=== PATIENT | male | born 1985 | race Caucasian/White ===

== ENCOUNTER 2018-01-25 12:56 | Emergency (ER) | payer SELFPAY ==
[2018-01-25] MEDS ORDERED: FENTANYL CITRATE INJ/PF 100 MCG/2 ML AMPUL ONE ×3 (13:19→15:05)
[2018-01-25] MEDS ORDERED: MIDAZOLAM 2 MG/2 ML INJ ONE ×2 (13:35→13:36)
[2018-01-25] MEDS ORDERED: HYDROCORTISONE SOD SUCCINATE INJ/PF 100 MG/2 ML SDV ONE (13:45)
--- NOTE | 2018-01-25 13:58 | RADIOLOGY REPORT (SQ) ---
EXAM DESCRIPTION: CHEST SINGLE VIEW COMPLETED DATE/TIME: 01/25/2018 1:47 pm REASON FOR STUDY: ETT PLACEMENT, NG TUBE PLACEMENT COMPARISON: None. EXAM PARAMETERS: NUMBER OF VIEWS: One view TECHNIQUE: Single frontal radiograph of the chest. RADIATION DOSE: N/A LIMITATIONS: None. FINDINGS: TEMPORARY SUPPORT DEVICES:ETT is in the right mainstem bronchus and should be pulled back 2 to 3 cm. NG appears to be in the stomach. LUNGS AND PLEURA: Left basilar opacities. No effusions. No masses. No pneumothorax. MEDIASTINUM AND HILAR STRUCTURES: No masses. Contour normal. HEART AND VASCULAR STRUCTURES: Heart enlarged. Vascular congestion. Aorta normal for age. BONES: No acute findings. OTHER: No other significant finding. IMPRESSION: Vascular congestion. Left basilar opacities. ET tube is low and should be pulled back 2 to 3 cm. TECHNICAL DOCUMENTATION: JOB ID: [id number] [employer]- All Rights Reserved Reading location - IP/workstation name: [email or web address]
[2018-01-25] MEDS ORDERED: PROPOFOL 100 ML IV ONE (14:11)
[2018-01-25] MEDS ORDERED: MIDAZOLAM HCL 50 MG/100 ML RTUINJ IV ONE (14:50)
[2018-01-25] MEDS ORDERED: NOREPINEPHRINE BITARTRATE INJ/PF 4 MG/4 ML SDV IV ONE (14:50)
[2018-01-25] MEDS ORDERED: EPINEPHRINE INJ 1 MG/10 ML DISP.SYRIN ONE ×2 (15:21→16:50)
[2018-01-25] MEDS ORDERED: SODIUM BICARBONATE 8.4% INJ 50 MEQ/50 ML DISP.SYRIN ONE ×3 (15:21→16:47)
[2018-01-25] MEDS ORDERED: ATROPINE SULFATE INJ 1 MG/10 ML DISP.SYRIN IV ONE (15:21)
[2018-01-25] MEDS ORDERED: AMIODARONE HCL INJ 150 MG/3 ML VIAL IV ONE (15:21)
[2018-01-25] MEDS ORDERED: TENECTEPLASE INJ 50 MG KIT IV ONE (15:23)
--- NOTE | 2018-01-25 16:10 | ER Document Report ---
ED Resuscitation - General Chief Complaint: Cardiac Arrest Stated Complaint: CARDIAC ARREST Mode of Arrival: Medic Information source: Parent, Emergency Med Personnel Cannot obtain history due to: Intubated Notes: 32-year-old male with a history of adrenal hypoplasia presents via EMS in cardiac arrest. Per EMS upon their arrival patient was talking, alert and awake when he suddenly became cyanotic and collapse. Patient was found in a wide complex tachycardia and received 2 shocks and 3 rounds of epi prior to arrival. Per the family patient has been complaining of gas and indigestion over the last few days and has been more fatigued. Parents believe that patient has been compliant with his steroid medication. They report no other significant past medical history. Family history is significant for a possible clotting disorder of the father for which she was told it could be genetic but they do not know what the name is at this time. Father is currently on Xarelto. - HPI Witnessed arrest: Yes Bystander CPR?: Yes Onset: Just prior to arrival Symptoms prior to event: Defibrillator fired - EMS states patient was initially alert and talking when he suddenly became cyanotic from the neck up and collapsed. Upon rhythm assessment a saw a wide complex tachycardia for which they administered 2 shocks. Patient received epinephrine prior to arrival. EMS did achieve Ross but then lost it just prior to getting to the emergency department., Diaphoretic, Other - cyanotic. negative: Chest pain, Leg swelling Associated Symptoms: Other - Burping, burning chest pain. No: Fever/Chills - Paramedics initial findings Unresponsive: Partially Rhythm: Ventricular fibrillation - Ventricular tachycardia Glucose (Mg/dl): 150 Pulse: None - Pre-hospital treatment Treatment: Intubated Epinephrine Dose (mg): 5 Atropine Dose (mg): 1 Sodium Bicarb dose (amp): 2 Amiodarone dose (mg): 300 Past Medical History - General Information source: Parent - Social History Smoking Status: Never Smoker Frequency of alcohol use: None Drug Abuse: None Lives with: Family Family History: Other - clotting disorder - Past Medical History Cardiac Medical History: Reports: Other - adrenal hypoplasia Pulmonary Medical History: Reports: None EENT Medical History: Reports: None Review of Systems - Review of Systems -: Yes ROS unobtainable due to patient's medical condition - Family reports a few days of patient complaining of burning in his chest. Physical Exam - Vital signs Vitals: Pulse Ox 100 01/25/18 13:00 Interpretation: Normal, Hypotensive - General General appearance: Unresponsive - HEENT Head: Normocephalic, Atraumatic Eyes: Normal Pupils: PERRL Nasal: Normal Mouth/Lips: Normal Mucous membranes: Dry Pharynx: Normal - Respiratory Respiratory status: Other - Patient arrived with Christian airway. Decreased breath sounds of the left lung. Chest status: Nontender Breath sounds: Normal Chest palpation: Normal - Cardiovascular Heart sounds: Normal auscultation Murmur: No Pulses: Absent: Brachial, Radial, Carotid, Femoral Normal capillary refill: No - Abdominal Inspection: Normal Distension: Distended Bowel sounds: Normal Tenderness: Nontender Organomegaly: No organomegaly - Extremities General upper extremity: Normal inspection, Nontender, Normal color, Normal ROM , Normal temperature. No: Edema General lower extremity: Normal inspection, Nontender, Normal color, Normal ROM , Normal temperature, Normal weight bearing. No: Edema, Abdoulaye's sign Course - Re-evaluation Re-evalutation: Laboratory 01/25/18 01/25/18 01/25/18 13:02 14:07 15:52 WBC 26.3 H RBC 4.53 Hgb 13.2 L Hct 39.6 MCV 87 MCH 29.1 MCHC 33.3 RDW 14.2 H Plt Count 292 Total Counted 100 Seg Neutrophils % Not Reportable Seg Neuts % (Manual) 53 Band Neutrophils % 19 H Lymphocytes % Not Reportable Lymphocytes % (Manual) 18 Atypical Lymphs % 1 Monocytes % Not Reportable Monocytes % (Manual) 3 Eosinophils % Not Reportable Eosinophils % (Manual) 0 Basophils % Not Reportable Basophils % (Manual) 0 Metamyelocytes % 4 H Myelocytes % 2 H Absolute Neutrophils Not Reportable Abs Neuts (Manual) 20.5 H Absolute Lymphocytes Not Reportable Abs Lymphs (Manual) 5.0 H Absolute Monocytes Not Reportable Abs Monocytes (Manual) 0.8 Absolute Eosinophils Not Reportable Absolute Eos (Manual) 0.0 Absolute Basophils Not Reportable Abs Basophils (Manual) 0.0 Smudge Cells PRESENT Toxic Vacuolation PRESENT Clumped Platelets PRESENT Platelet Comment ADEQUATE Polychromasia SLIGHT Anisocytosis SLIGHT Pappenheimer Bodies PRESENT PT INR VBG pH VBG pCO2 VBG HCO3 VBG Base Excess Sodium Potassium Chloride Carbon Dioxide Anion Gap BUN Creatinine Est GFR ( Amer) Est GFR (Non-Af Amer) Glucose POC Glucose 150 H Lactic Acid Calcium Total Bilirubin Direct Bilirubin Neonat Total Bilirubin Neonat Direct Bilirubin Neonat Indirect Bili AST ALT Alkaline Phosphatase Total Protein Albumin Urine Color COLORLESS Urine Appearance CLEAR Urine pH 7.0 Ur Specific [place] 1.014 Urine Protein 100 H Urine Glucose (UA) 1000 H Urine Ketones NEGATIVE Urine Blood MODERATE H Urine Nitrite NEGATIVE Urine Bilirubin NEGATIVE Urine Urobilinogen NEGATIVE Ur Leukocyte Esterase NEGATIVE Urine WBC (Auto) 8 Urine RBC (Auto) 8 Squamous Epi Cells Auto 1 Urine Mucus (Auto) OCC Urine Ascorbic Acid NEGATIVE 01/25/18 01/25/18 01/25/18 15:52 15:52 15:52 WBC RBC Hgb Hct MCV MCH MCHC RDW Plt Count Total Counted Seg Neutrophils % Seg Neuts % (Manual) Band Neutrophils % Lymphocytes % Lymphocytes % (Manual) Atypical Lymphs % Monocytes % Monocytes % (Manual) Eosinophils % Eosinophils % (Manual) Basophils % Basophils % (Manual) Metamyelocytes % Myelocytes % Absolute Neutrophils Abs Neuts (Manual) Absolute Lymphocytes Abs Lymphs (Manual) Absolute Monocytes Abs Monocytes (Manual) Absolute Eosinophils Absolute Eos (Manual) Absolute Basophils Abs Basophils (Manual) Smudge Cells Toxic Vacuolation Clumped Platelets Platelet Comment Polychromasia Anisocytosis Pappenheimer Bodies PT 23.3 H INR 1.95 VBG pH VBG pCO2 VBG HCO3 VBG Base Excess Sodium Cancelled Potassium Cancelled Chloride Cancelled Carbon Dioxide Cancelled Anion Gap Cancelled BUN Cancelled Creatinine Cancelled Est GFR ( Amer) Cancelled Est GFR (Non-Af Amer) Cancelled Glucose Cancelled POC Glucose Lactic Acid 5.8 H Calcium Cancelled Total Bilirubin Cancelled Direct Bilirubin Cancelled Neonat Total Bilirubin Cancelled Neonat Direct Bilirubin Cancelled Neonat Indirect Bili Cancelled AST Cancelled ALT Cancelled Alkaline Phosphatase Cancelled Total Protein Cancelled Albumin Cancelled Urine Color Urine Appearance Urine pH Ur Specific [place] Urine Protein Urine Glucose (UA) Urine Ketones Urine Blood Urine Nitrite Urine Bilirubin Urine Urobilinogen Ur Leukocyte Esterase Urine WBC (Auto) Urine RBC (Auto) Squamous Epi Cells Auto Urine Mucus (Auto) Urine Ascorbic Acid 01/25/18 01/25/18 16:00 16:39 WBC RBC Hgb Hct MCV MCH MCHC RDW Plt Count Total Counted Seg Neutrophils % Seg Neuts % (Manual) Band Neutrophils % Lymphocytes % Lymphocytes % (Manual) Atypical Lymphs % Monocytes % Monocytes % (Manual) Eosinophils % Eosinophils % (Manual) Basophils % Basophils % (Manual) Metamyelocytes % Myelocytes % Absolute Neutrophils Abs Neuts (Manual) Absolute Lymphocytes Abs Lymphs (Manual) Absolute Monocytes Abs Monocytes (Manual) Absolute Eosinophils Absolute Eos (Manual) Absolute Basophils Abs Basophils (Manual) Smudge Cells Toxic Vacuolation Clumped Platelets Platelet Comment Polychromasia Anisocytosis Pappenheimer Bodies PT INR VBG pH 6.90 L* VBG pCO2 60.4 VBG HCO3 11.6 L VBG Base Excess -21.6 Sodium 114.6 L* Potassium 6.0 H* Chloride 94 L Carbon Dioxide 12 L Anion Gap 9 BUN 40 H Creatinine 0.93 Est GFR ( Amer) > 60 Est GFR (Non-Af Amer) > 60 Glucose 366 H POC Glucose Lactic Acid Calcium 5.8 L* Total Bilirubin 0.4 Direct Bilirubin 0.3 Neonat Total Bilirubin Not Reportable Neonat Direct Bilirubin Not Reportable Neonat Indirect Bili Not Reportable AST 181 H ALT 143 H Alkaline Phosphatase 35 L Total Protein 3.8 L Albumin 2.2 L Urine Color Urine Appearance Urine pH Ur Specific [place] Urine Protein Urine Glucose (UA) Urine Ketones Urine Blood Urine Nitrite Urine Bilirubin Urine Urobilinogen Ur Leukocyte Esterase Urine WBC (Auto) Urine RBC (Auto) Squamous Epi Cells Auto Urine Mucus (Auto) Urine Ascorbic Acid 01/25/18 16:39 32-year-old male with a history of adrenal hypoplasia presents in cardiac arrest from home. Per EMS upon their arrival patient was alert awake and talking when he suddenly became cyanotic, collapsed and was found to be in a wide complex tachycardia. Patient received 2 shocks from EMS and 2 rounds of epinephrine. They were able to achieve ROSC but patient arrived in asystole. Upon his arrival to the emergency department patient has a Christian airway in place but is without pulse. Patient received 2 A of sodium bicarb, 1 amp of calcium gluconate, magnesium, multiple rounds of epinephrine, 1 mg of atropine, 100 mg of hydrocortisone. Christian airway was replaced with 7 5 ET tube via glide scope. 3IO's were placed in the right and left humerus and left tib-fib. Patient was started on epinephrine and then changed to nor epi. Multiple rounds of ACLS were performed. We did achieve ROSC in the emergency department and the patient had fluctuations in his blood pressure and pulse ox. Initial chest x- ray was significant for complete white out of the left lung. Central Line placement achieved in right femoral vein. X-ray advised to pull back the to 2- 3 cm. Just as we were attempting to pull back the tube and the patient became hypoxic and hypotensive. he was taken off the vent and we began bagging. repeat x-ray showed improvement of left sided opacities and appropriate tube placement Nor epi was increased without improvement. Patient again lost pulses and resuscitation was restarted. At that point the family was brought into the room and I explained that the patient would likely have poor outcomes if we were able to achieve ROSC. I did have multiple conversations with the family prior to this. They were brought into the room multiple times to see their son. Per the request of the mother resuscitation was stopped. Bedside ultrasound confirmed no cardiac activity on multiple pulse checks. 01/25/18 17:26 Time of 1707. 01/26/18 07:54 - Vital Signs Vital signs: Temp Pulse Resp BP Pulse Ox 94.9 F L 26 H 161/18 H 83 L 01/25/18 17:00 01/25/18 17:00 01/25/18 16:49 01/25/18 17:00 - Laboratory Result Diagrams: 01/25/18 15:52 01/25/18 16:39 Laboratory results interpreted by me: 01/25/18 01/25/18 01/25/18 13:02 14:07 15:52 WBC 26.3 H Hgb 13.2 L RDW 14.2 H Band Neutrophils % 19 H Metamyelocytes % 4 H Myelocytes % 2 H Abs Neuts (Manual) 20.5 H Abs Lymphs (Manual) 5.0 H PT VBG pH VBG HCO3 Sodium Potassium Chloride Carbon Dioxide BUN Glucose POC Glucose 150 H Lactic Acid Calcium AST ALT Alkaline Phosphatase Total Protein Albumin Urine Protein 100 H Urine Glucose (UA) 1000 H Urine Blood MODERATE H 01/25/18 01/25/18 01/25/18 15:52 15:52 16:00 WBC Hgb RDW Band Neutrophils % Metamyelocytes % Myelocytes % Abs Neuts (Manual) Abs Lymphs (Manual) PT 23.3 H VBG pH 6.90 L* VBG HCO3 11.6 L Sodium Potassium Chloride Carbon Dioxide BUN Glucose POC Glucose Lactic Acid 5.8 H Calcium AST ALT Alkaline Phosphatase Total Protein Albumin Urine Protein Urine Glucose (UA) Urine Blood 01/25/18 16:39 WBC Hgb RDW Band Neutrophils % Metamyelocytes % Myelocytes % Abs Neuts (Manual) Abs Lymphs (Manual) PT VBG pH VBG HCO3 Sodium 114.6 L* Potassium 6.0 H* Chloride 94 L Carbon Dioxide 12 L BUN 40 H Glucose 366 H POC Glucose Lactic Acid Calcium 5.8 L* AST 181 H ALT 143 H Alkaline Phosphatase 35 L Total Protein 3.8 L Albumin 2.2 L Urine Protein Urine Glucose (UA) Urine Blood Procedures - Central Line Right Femoral Time completed: 03:30 Consent obtained: No Central line pre-insertion: Sterile PPE donned, Chloraprep applied, Sterile drapes applied Central line lumen type: Triple Ultrasound guided: Yes Line secured with sutures: No Central line post-insertion: Blood return from lumens, Biopatch applied, Sterile dressing applied Number of attempts: 2 - Intubation Orotracheal Time of Intubation: 02:30 Airway evaluation: Large tongue Mallampati Classification: Class 3 Medications: Etomidate Intubation method: Orotracheal Blade type: Other - 3.0 mac glide ETT size: 7.5 ETT secured at: Teeth ETT secured at (cm): 20 Breath Sounds after Intubation: Right greater than left End tidal CO2 confirmed: Yes Post Intubation Xray: Yes - advised to pull back 2cm Intubation Complications: No complications - Ultrasound/Bedside Ultrasound/Bedside Ultrasound: Other - Ultrasound-guided central line placement Discharge - Discharge Clinical Impression: Cardiac arrest Condition: Critical Disposition:
[2018-01-25 16:18] LABS: VENOUS BLOOD BASE EXCESS -21.6 mmol/L; VENOUS BLOOD HCO3 11.6 mmol/L (20-32); VENOUS BLOOD PCO2 60.4 mmHg (35-63)
[2018-01-25] MEDS ORDERED: IPRATROPIUM/ALBUTEROL 0.5-2.5 MG/3 ML AMPUL NEB ONE (16:20)
[2018-01-25 16:25] LABS: VENOUS BLOOD PH 6.9 (7.30-7.42)
[2018-01-25 16:26] LABS: HEMATOCRIT 39.6 % (37.9-51.0); HEMOGLOBIN 13.2 g/dL (13.5-17.0); MEAN CORPUSCULAR HEMOGLOBIN 29.1 pg (27.0-33.4); MEAN CORPUSCULAR HGB CONC 33.3 g/dL (32.0-36.0); MEAN CORPUSCULAR VOLUME 87 fl (80-97); RED BLOOD COUNT 4.53 10^6/uL (4.35-5.55); RED CELL DISTRIBUTION WIDTH 14.2 % (11.5-14.0); WHITE BLOOD COUNT 26.3 10^3/uL (4.0-10.5)
[2018-01-25 16:35] LABS: INTERNATIONAL RATION (INR) 1.95; PROTHROMBIN TIME 23.3 SEC (11.4-15.4)
[2018-01-25 16:45] LABS: ABSOLUTE MONOCYTES # (MANUAL) 0.8 10^3/uL (0.1-1.4); ABSOLUTE NEUTROPHILS# (MANUAL) 20.5 10^3/uL (1.7-8.2); BASOPHILS % (MANUAL) 0 % (0-2); EOSINOPHILS % (MANUAL) 0 % (0-6); LYMPHOCYTES % (MANUAL) 18 % (13-45); MONOCYTES % (MANUAL) 3 % (3-13); SEGMENTED NEUTROPHILS % (MAN) 53 % (42-78); TOTAL CELLS COUNTED 100
[2018-01-25] MEDS ORDERED: CALCIUM GLUCONATE 1000 MG/10 ML INJ IV ONE (16:47)
[2018-01-25 16:51] LABS: ANISOCYTOSIS SLIGHT; PAPPENHEIMER BODIES PRESENT; PLATELET CLUMPS PRESENT; POLYCHROMASIA SLIGHT; SMUDGE CELLS PRESENT; TOXIC VACUOLATION PRESENT
[2018-01-25 16:56] LABS: BAND NEUTROPHILS % (MANUAL) 19 % (3-5); METAMYELOCYTES % (MANUAL) 4 % (0); MYELOCYTES % (MANUAL) 2 % (0); PLATELET COUNT 292 10^3/uL (150-450)
[2018-01-25 16:57] LABS: PLATELET COMMENT ADEQUATE
[2018-01-25 17:03] LABS: ALBUMIN 2.2 g/dL (3.5-5.0); BILIRUBIN,DIRECT 0.3 mg/dL (0.0-0.4); BILIRUBIN,TOTAL 0.4 mg/dL (0.2-1.3); CARBON DIOXIDE 12 mmol/L (22-30); CHLORIDE 94 mmol/L (98-107); GLUCOSE 366 mg/dL (75-110); TOTAL PROTEIN 3.8 g/dL (6.3-8.2)
--- NOTE | 2018-01-25 17:10 | RADIOLOGY REPORT (SQ) ---
EXAM DESCRIPTION: CHEST SINGLE VIEW COMPLETED DATE/TIME: 01/25/2018 4:29 pm REASON FOR STUDY: ETT ADJUSTMENT, FEMORAL LINE COMPARISON: 01/25/2018 at 1329 hours. EXAM PARAMETERS: NUMBER OF VIEWS: One view. TECHNIQUE: Single frontal radiographic view of the chest acquired. RADIATION DOSE: NA LIMITATIONS: None. FINDINGS: LUNGS AND PLEURA: Diffuse perihilar opacity in the left lung. MEDIASTINUM AND HILAR STRUCTURES: No masses. Contour normal. HEART AND VASCULAR STRUCTURES: Mild cardiomegaly. Vascular congestion. BONES: No acute findings. HARDWARE: Endotracheal tube with the tip located 3 cm proximal to the james. Nasogastric tube with the tip in the stomach. OTHER: No other significant finding. IMPRESSION: IMPROVED POSITION OF THE ENDOTRACHEAL TUBE. OTHERWISE NO CHANGE. TECHNICAL DOCUMENTATION: JOB ID: [id number] [employer]- All Rights Reserved Reading location - IP/workstation name: [email or web address]
--- NOTE | 2018-01-25 17:11 | RADIOLOGY REPORT (SQ) ---
EXAM DESCRIPTION: KUB/ABDOMEN (SINGLE VIEW) COMPLETED DATE/TIME: 01/25/2018 4:29 pm REASON FOR STUDY: ETT ADJUSTMENT, FEMORAL LINE COMPARISON: None. NUMBER OF VIEWS: One view. TECHNIQUE: Supine radiographic image of the abdomen acquired. LIMITATIONS: The lower abdomen is not included on the image. FINDINGS: BOWEL GAS PATTERN: Normal bowel gas pattern. No dilated loops. CALCIFICATIONS: No suspicious calcifications. SOFT TISSUES: No gross mass or suggestion of organomegaly. HARDWARE: Nasogastric tube with the tip in the stomach. Distal side hole may be at the gastroesophag eal junction. The tip of the right femoral catheter is visualized at the level of L5. BONES: No acute fracture. No worrisome bone lesions. OTHER: No other significant finding. IMPRESSION: HARDWARE DESCRIBED. ADVANCEMENT OF THE NASOGASTRIC TUBE BY SEVERAL CM WOULD IMPROVE POSITIONING. OTHERWISE NO RADIOGRAPHIC EVIDENCE FOR ACUTE ABDOMINAL DISEASE. TECHNICAL DOCUMENTATION: JOB ID: [id number] [employer]- All Rights Reserved Reading location - IP/workstation name: [email or web address]
[2018-01-25 17:12] LABS: CALCIUM 5.8 mg/dL (8.4-10.2)
[2018-01-25 17:13] VITALS: BP 161/18
[2018-01-25 17:13] LABS: ALKALINE PHOSPHATASE 35 U/L (38-126); ANION GAP 9 (5-19); ASPARTATE AMINO TRANSFERASE 181 U/L (17-59); BLOOD UREA NITROGEN 40 mg/dL (7-20); SODIUM 114.6 mmol/L (137-145)
[2018-01-25 17:14] LABS: ALANINE AMINOTRANSFERASE 143 U/L (21-72)
[2018-01-25] MEDS ORDERED: ETOMIDATE INJ/PF 20 MG/10 ML SDV IV ONE (17:39)
[2018-01-25] MEDS ORDERED: FENTANYL CITRATE INJ/PF 100 MCG/2 ML AMPUL IV ONE (17:39)
[2018-01-25] MEDS ORDERED: DEXTROSE 5%-WATER 1000 ML 1,000 ML with SODIUM BICARBONATE 150 MEQ IV PRN ×2 (17:39)
--- NOTE | 2018-01-25 19:08 | EKG REPORT ---
SEVERITY:- ABNORMAL ECG - ATRIAL FIBRILLATION LOW VOLTAGE IN FRONTAL LEADS CONSIDER POSTERIOR INFARCT BORDERLINE ST DEPRESSION, LATERAL LEADS : Confirmed by: Pop Dobbins MD 25-Jan-2018 19:07:48
[2018-01-25 19:19] LABS: APPEARANCE,URINE CLEAR; BILIRUBIN,URINE NEGATIVE (NEGATIVE); COLOR,URINE COLORLESS; GLUCOSE, URINE 1000 mg/dL (NEGATIVE); KETONES,URINE NEGATIVE (NEGATIVE); LEUKOCYTE ESTERASE,URINE NEGATIVE (NEGATIVE); NITRITE,URINE NEGATIVE (NEGATIVE); PROTEIN,URINE 100 mg/dL (NEGATIVE); URINE SPECIFIC GRAVITY 1.014; UROBILINOGEN,URINE NEGATIVE mg/dL (<2.0)
--- NOTE | 2018-01-28 09:35 | EKG REPORT ---
SEVERITY:- NORMAL ECG - SINUS RHYTHM : Confirmed by: Santino Casas 28-Jan-2018 09:35:16
== END 2018-01-25 17:06 | disposition expired ==
LOC: ER 12:56
PROC: 0BH17EZ Insertion of Endotracheal Airway into Trachea, Via Natural or Artificial Opening (ICD-10-PCS; principal; 2018-01-25)
PROC: 06HM33Z Insertion of Infusion Device into Right Femoral Vein, Percutaneous Approach (ICD-10-PCS; 2018-01-25)
DX: I46.9 Cardiac arrest, cause unspecified (principal); Q89.1 Congenital malformations of adrenal gland
CPT/HCPCS: 31500; 36556; 93005; 94640; 99291; 92950; 96375; 96365; 36415; 87040; 87086; 82962; 85025; 85610; 80053; 81001; 82803; 83605; 71045; 74018; 93010; C1751; J3101; J2250 ×2; J0461; J0610; J0171; J3010; J1720; J3490 ×2; J7060; J0282; J7620